=== PATIENT | female | born 1955 | race Caucasian/White ===

== ENCOUNTER 2016-10-10 20:56 | Emergency (ER) ==
[2016-10-10 21:30] VITALS: BP 150/89
--- NOTE | 2016-10-10 21:49 | PROVIDER DOCUMENTATION ---
HPI-General Adult - General Chief Complaint: Female Stated Complaint: FEMALE Time Seen by Provider: 10/10/16 21:35 Source: patient Allergies/Adverse Reactions: Patient Allergies Allergy/AdvReac Type Severity Reaction Status Date / Time metronidazole [From Flagyl] AdvReac HIVES Verified 11/15/15 12:56 Penicillins AdvReac HIVES Verified 11/15/15 12:56 Home Medications: Home Medication List Medication Instructions Recorded Confirmed Last Taken Type Amlodipine [Norvasc] 10 mg PO QAM 02/20/15 10/10/16 11/15/15 History Aspirin 81 mg PO QAM 02/20/15 10/10/16 11/15/15 History Furosemide [Lasix] 40 mg PO QAM 02/20/15 10/10/16 11/15/15 History Gabapentin 600 mg PO TID 02/20/15 10/10/16 11/15/15 History Lorazepam [Ativan] 1 mg PO TID #90 tablet 02/20/15 10/10/16 11/15/15 Rx PRAVAstatin [Pravachol] 40 mg PO QAM 02/20/15 10/10/16 11/15/15 History Potassium Chloride 20 meq PO QAM 02/20/15 10/10/16 11/15/15 History Meloxicam [Mobic] 15 mg PO QAM 09/24/15 10/10/16 11/15/15 History Baclofen 10 mg PO BID 10/10/16 10/10/16 Unknown History Bupropion [Wellbutrin] 150 mg PO BID 10/10/16 10/10/16 Unknown History Hydrocortisone Acetate [Anusol-Hc] 25 mg RC ONCE PRN #10 supp.rect 10/10/16 Unknown Rx Quetiapine Fumarate [Seroquel] 100 mg PO HS 10/10/16 10/10/16 Unknown History Vitamin E (Dl,Tocopheryl Acet) 400 unit PO DAILY 10/10/16 10/10/16 Unknown History [Vitamin E] - History of Present Illness -Gen Adult Nature of Presenting Problems: PT IS A 60YOF PRESENTING TO THE ED C/O URINARY PROBLEMS. PT STATES SHE HAS A HISTORY OF BLADDER SLINGS AND WHEN SHE URINATES SHE CAN SEE HER BLADDER FALLING OUT. NO PAIN OR OTHER COMPLAINTS AND STATES "SHES TOO EMBARRASSED TO TALK TO FAMILY DR ABOUT THIS" NO OTHER COMPLAINTS NOTED AT THIS TIME. Location of Pain/Injury: reports: generalized Pain Radiation: reports: no radiation Quality of Pain: reports: aching Severity: reports: mild Onset/Duration: reports: just prior to arrival Timing: reports: still present Context/Activities at Onset: reports: light activity Modifying Factors: improves with: nothing Associated Symptoms: reports: genitourinary problems. denies: constipation, nausea, shortness of breath, vomiting Similar Symptoms Previously?: No Recently seen or treated by another doctor?: No Review of Systems - Adult - REVIEW OF SYSTEMS - ADULT Constitutional: reports: no symptoms reported Eyes: reports: no symptoms reported Ears, Nose, Mouth & Throat: reports: no symptoms reported Cardiovascular: reports: no symptoms reported Respiratory: reports: no symptoms reported Gastrointestinal: reports: no symptoms reported Genitourinary: reports: see HPI, incontinence, other (CAN SEE BLADDER WHEN URINATING) Musculoskeletal: reports: no symptoms reported Integumentary: reports: no symptoms reported Neurological: reports: no symptoms reported Psychiatric: reports: no symptoms reported Endocrine: reports: no symptoms reported Hematologic/Lymphatic: reports: no symptoms reported Allergic/Immunologic: reports: no symptoms reported All Other Systems: Reviewed and Negative Past History - Adult - PAST MEDICAL HISTORY-ADULT Review of Records: reports: Old Records Reviewed, Nursing Assessment Review, Medications Reviewed, Social history reviewed & non-contributory. Major Childhood Illnesses: reports: denies history Cardiovascular: reports: HTN, hyperlipidemia Respiratory: reports: COPD Gastrointestinal: reports: GERD Obstetrical/Gynecological: reports: denies history Genitourinary: reports: denies history Musculoskeletal: reports: denies history Neurological: reports: TIA Psychiatric: reports: anxiety Endocrine/Immune: reports: thyroid disorder Other Conditions: reports: denies history - PRIOR SURGERIES/PROCEDURES Surgical/Procedure History: reports: hysterectomy - IMMUNIZATION STATUS Childhood Immunizations: See Nurse Assessment Flu Vaccine: See Nurse Assessment - FAMILY HISTORY Family History: reviewed, not pertinent - SOCIAL HISTORY Smoking: denies, quit greater than 1 year Substance Use: none/never, denies Alcohol Use Frequency: never Living Situation: family Physical Exam-General - PHYSICAL EXAM-ADULT Initial Vital Signs Reviewed: Yes - CONSTITUTIONAL General Appearance: appears well, alert, mild distress, anxious. negative: no apparent distress - EYES Eyes: PERRL/EOMI, pink conjunctivae, fundi clear, no AV nicking - HEAD, EARS, NOSE, MOUTH & THROAT HENMT: normocephalic/atraumatic, moist mucous membranes, normal ENT inspection, TMs normal, pharynx normal - NECK Neck: non-tender, full range of motion, supple, normal inspection - RESPIRATORY Respiratory: chest non-tender, lungs clear, normal breath sounds, no pleuratic chest pain, no respiratory distress, no accessory muscle use - CARDIOVASCULAR Cardiovascular: normal peripheral pulses, regular rate, rhythm, no edema, no gallop, no JVD, no murmur - GASTROINTESTINAL (ABDOMEN) Abdominal Exam: normal bowel sounds, non tender, soft, no organomegaly, no pulsatile mass - GENITOURINARY Female Genitalia/Pelvic Exam: external exam normal Rectal Exam: hemorrhoids (1 EXTERNAL) Hemoccult Exam: deferred - LYMPHATIC Lymphatic: no adenopathy - MUSCULOSKELETAL Back Exam: normal inspection, no CVA tenderness, no vertebral tenderness Extremity: normal range of motion, non-tender, normal gait, normal inspection, no pedal edema, no calf tenderness, normal capillary refill, pelvis stable - SKIN Integumentary: normal color, normal turgor, warm/dry - NEUROLOGIC 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: 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 II-XII nml as tested, grossly normal, no motor/sensory deficits - PSYCHIATRIC Psych/Mental Status: normal mood/affect, normal thought content, normal thought process, oriented x 3 Progress - PLAN OF CARE/RESULTS Progress/Plan/Lab Results: Vital Signs - 24 hr 10/10/16 21:25 Temperature 97.5 F L Pulse Rate 70 Respiratory 18 Rate Blood Pressure 150/89 O2 Sat by Pulse 98 Oximetry Departure - Departure Time of Disposition Order: 21:51 DIAGNOSIS: Acute hemorrhoid Disposition: HOME 01 Certified Medical Emergency: Emergent Condition: Stable Prescriptions: Hydrocortisone Acetate [Anusol-Hc] 25 mg RC ONCE PRN #10 supp.rect PRN Reason: hemmoroids Referrals: Carly Rice CRNP [Primary Care Provider] - Forms: Return to School/Parent Work Instructions: Hydrocortisone tablets Attestation - Scribe Verification/Attestation Scribe:: Jamee Michael Acting as Scribe for:: Luis Fairchild Scribe documention review:: This chart was documented by a scribe and accurately reflects the service the provider performed and the decisions made by the provider. Physician Attestation - Physician Attestation I, the provider, attest to the following statement:: Luis Fairchild Physician documentation Attestation:: This documentation recorded by the scribe accurately reflects the service I personally performed and the decisions made by me.
== END 2016-10-10 21:56 | disposition home or self-care (01) ==
LOC: P.ED 20:56
DX: K64.4 Residual hemorrhoidal skin tags (principal); I10 Essential (primary) hypertension; E78.5 Hyperlipidemia, unspecified; J44.9 Chronic obstructive pulmonary disease, unspecified; K21.9 Gastro-esophageal reflux disease without esophagitis; Z86.73 Personal history of transient ischemic attack (TIA), and cerebral infarction without residual deficits; E07.9 Disorder of thyroid, unspecified; F41.9 Anxiety disorder, unspecified; Z79.899 Other long term (current) drug therapy; Z87.891 Personal history of nicotine dependence; R32 Unspecified urinary incontinence; Z79.1 Long term (current) use of non-steroidal anti-inflammatories (NSAID); Z79.82 Long term (current) use of aspirin